=== PATIENT | female | born 1995 | race Two or more races ===

== ENCOUNTER 2022-09-21 13:21 | Outpatient (OUT) | payer OTHER, SELFPAY ==
--- NOTE | 2022-09-21 13:07 | XR_ITS ---
The [address] [address] Patient Name: RAJAT GÓMEZ MRN: [id number] date: 1995 Sex: F Assigned Patient Location: [facility] Current Patient Location: [facility] Accession/Order Number: [id number] Exam Date: 09/21/2022 13:10 Report Date: 09/21/2022 17:53 At the request of: SEBAS SIDHU Procedure: XR ankle RT min 3V PROCEDURE: XR ankle RT min 3V COMPARISON: 08/28/2022 HISTORY: RIGHT ANKLE PAIN FINDINGS: BONES:Again demonstrated is remote fixation with a lateral plate on the fibula as well as fixation across the tibiofibular syndesmosis. Underlying distal fibular fracture is seen less well observed suggesting interval healing. Persistent but stable asymmetry of the ankle mortise with widening along the medial joint space SOFT TISSUES:Moderate diffuse soft tissue swelling EFFUSION:Small joint effusion OTHER: Negative. IMPRESSION: Stable reduction internal fixation of a distal fibular fracture Stable asymmetry of the tibiotalar joint Electronically authenticated by: YASMANY BRANNON Date: 09/21/2022 17:53
== END 2022-09-21 13:22 ==
LOC: RAD 13:21
PROVIDERS: PCP Physician Assistant; Visit Provider Physician Assistant
DX: S82.61XD Displaced fracture of lateral malleolus of right fibula, subsequent encounter for closed fracture with routine healing (principal)
CPT/HCPCS: 73610

== ENCOUNTER 2022-10-12 13:00 | Outpatient (OUT) | payer OTHER, SELFPAY ==
--- NOTE | 2022-10-12 | XR_ITS ---
[address] [address] Patient Name: RAJAT GÓMEZ MRN: [id number] date: 1995 Sex: F Assigned Patient Location: [facility] Current Patient Location: [facility] Accession/Order Number: [id number] Exam Date: 10/12/2022 13:15 Report Date: 10/12/2022 14:29 At the request of: SEBAS SIDHU Procedure: XR ankle RT min 3V EXAM: XR ankle RT min 3V HISTORY: RIGHT ANKLE PAIN COMPARISON: 09/21/2022 TECHNIQUE: 4 views Findings/impression: No significant change from the prior exam. Redemonstration of fixation hardware to distal tibia and fibula. Intact hardware. Stable asymmetry of the tibiotalar joint. Mild soft tissue swelling. Electronically authenticated by: MADELINE FRANKS Date: 10/12/2022 14:29
== END 2022-10-12 13:01 | disposition home or self-care (01) ==
LOC: RAD 13:00
PROVIDERS: Visit Provider Physician Assistant
DX: S82.61XD Displaced fracture of lateral malleolus of right fibula, subsequent encounter for closed fracture with routine healing (principal); Z96.7 Presence of other bone and tendon implants; M79.89 Other specified soft tissue disorders; X58.XXXD Exposure to other specified factors, subsequent encounter
CPT/HCPCS: 73610

== ENCOUNTER 2022-11-01 13:20 | Outpatient (OUT) | payer OTHER, SELFPAY ==
--- NOTE | 2022-11-01 13:24 | XR_ITS ---
The [address] [address] Patient Name: RAJAT GÓMEZ MRN: [id number] date: 1995 Sex: F Assigned Patient Location: [facility] Current Patient Location: [facility] Accession/Order Number: [id number] Exam Date: 11/01/2022 13:24 Report Date: 11/01/2022 13:57 At the request of: NATALIE HUGHES Procedure: XR ankle RT min 3V EXAM: XR ankle RT min 3V HISTORY: RIGHT ANKLE PAIN COMPARISON: 10/12/2022 TECHNIQUE: 3 views Findings/impression: No significant change from prior exam. Redemonstration of fixation hardware to the distal fibula and tibia. Maintained ankle mortise. Soft tissue swelling. Electronically authenticated by: MADELINE FRANKS Date: 11/01/2022 13:57
== END 2022-11-01 13:21 | disposition home or self-care (01) ==
LOC: RAD 13:20
PROVIDERS: Visit Provider Podiatrist Foot & Ankle Surgery
DX: S82.61XD Displaced fracture of lateral malleolus of right fibula, subsequent encounter for closed fracture with routine healing (principal)
CPT/HCPCS: 73610

== ENCOUNTER 2022-11-29 13:20 | Outpatient (OUT) | payer OTHER, SELFPAY ==
--- NOTE | 2022-11-29 | XR_ITS ---
The [address] [address] Patient Name: RAJAT GÓMEZ MRN: [id number] date: 1995 Sex: F Assigned Patient Location: [facility] Current Patient Location: [facility] Accession/Order Number: [id number] Exam Date: 11/29/2022 14:13 Report Date: 11/29/2022 19:18 At the request of: NATALIE HUGHES Procedure: XR ankle RT min 3V EXAM: XR ankle RT min 3V HISTORY: Right ankle with fracture and surgical repair. Follow-up study. COMPARISON: 11/01/2022 TECHNIQUE: 3 views of the right ankle were obtained. FINDINGS: There is no evidence of an acute fracture or dislocation. The mortise is intact. No osteochondral injury is identified. There is evidence of a prior fracture involving the tibia, with hardware fixating the fracture fragments. There is osseous healing of the fractures. Diffuse soft tissue swelling about the ankle is noted. XR/XR ankle RT min 3V IMPRESSION: No acute fracture or dislocation. No significant degenerative changes are seen at the ankle. Remote postsurgical changes are present with hardware in place. Diffuse soft tissue swelling about the ankle is noted. The overall appearance is not changed significantly. Electronically authenticated by: NATALIE SHARP Date: 11/29/2022 19:18
== END 2022-11-29 13:21 | disposition home or self-care (01) ==
LOC: RAD 13:20
PROVIDERS: Visit Provider Podiatrist Foot & Ankle Surgery
DX: S82.61XA Displaced fracture of lateral malleolus of right fibula, initial encounter for closed fracture (principal)
CPT/HCPCS: 73610